=== PATIENT | male | born 1940 | race Hispanic/Latino ===

== ENCOUNTER 2016-12-17 10:07 | Emergency (ER) | payer OTHER ==
[2016-12-17 10:16] VITALS: TEMP 96.8; BMI 18.5
--- NOTE | 2016-12-17 10:44 | ED PDOC ---
Syncope/Near Syncope/Dizziness Time Seen by Provider: 12/17/16 10:24 Chief Complaint (Nursing): Dizziness/Lightheaded Chief Complaint (Provider): Dizziness/lightheaded History Per: Patient History/Exam Limitations: no limitations Onset/Duration Of Symptoms: Hrs (morning prior to arrival ) Current Symptoms Are (Timing): Still Present Additional Complaint(s): Pablo Dyer is a 76 year old male presenting to the ED for an evaluation of dizziness occurring since this morning. The patient describes it as the room spinning around. He also states his dizziness worsens when moving or changing the position of his head, but improves when lying still. He denies associated headache, chest pain, palpitations, and nausea. PMD: Filipe Oliva MD Past Medical History Reviewed: Historical Data, Nursing Documentation, Vital Signs Vital Signs: Last Vital Signs Temp 96.8 F L 12/17/16 10:15 Pulse 90 12/17/16 10:15 Resp 16 12/17/16 10:15 BP 174/102 H 12/17/16 10:15 Pulse Ox 98 12/17/16 10:15 - Medical History PMH: No Chronic Diseases - Family History Family History: States: Unknown Family Hx - Home Medications Home Medications: Ambulatory Orders Medication Instructions Recorded Bacitracin OINT 1 applic TP DAILY #1 tube 07/13/15 Clindamycin [Cleocin] 300 mg PO TID #30 cap 07/13/15 Sulfamethoxazole/Trimethoprim 1 tab PO BID #14 tab 07/13/15 [Bactrim DS 800 mg-160 mg] Meclizine [Meclizine*] 25 mg PO Q8 #15 tab 12/17/16 - Allergies Allergies/Adverse Reactions: Allergies Allergy/AdvReac Type Severity Reaction Status Date / Time No Known Allergies Allergy Verified 07/13/15 11:36 Review of Systems ROS Statement: Except As Marked, All Systems Reviewed And Found Negative Cardiovascular: Negative for: Chest Pain, Palpitations Gastrointestinal: Negative for: Nausea Neurological: Positive for: Dizziness. Negative for: Headache Physical Exam - Reviewed Nursing Documentation Reviewed: Yes Vital Signs Reviewed: Yes - Physical Exam Appears: Positive for: Non-toxic, No Acute Distress Head Exam: Positive for: ATRAUMATIC, NORMAL INSPECTION, NORMOCEPHALIC Skin: Positive for: Normal Color Eye Exam: Positive for: Normal appearance, EOMI, PERRL (PERRLA) Neck: Positive for: Normal, Painless ROM Cardiovascular/Chest: Positive for: Regular Rate, Rhythm. Negative for: Murmur Respiratory: Positive for: Normal Breath Sounds. Negative for: Respiratory Distress Extremity: Positive for: Normal ROM Neurologic/Psych: Positive for: Alert, Oriented (x3). Negative for: Motor/ Sensory Deficits - Laboratory Results Result Diagrams: 12/17/16 10:45 12/17/16 10:45 - ECG O2 Sat by Pulse Oximetry: 98 (RA) Pulse Ox Interpretation: Normal Medical Decision Making Medical Decision Making: Time: 10:24 Impression: Dizziness/lightheaded Plan: * CT Head W/O Contrast * ED EKG * CMP * CBC (With differential) * Reevaluation Scribe Attestation: Documented by Jayde Perry, acting as a scribe for Damion Andujar MD. Provider Scribe Attestation: All medical record entries made by the Scribe were at my direction and personally dictated by me. I have reviewed the chart and agree that the record accurately reflects my personal performance of the history, physical exam, medical decision making, and the department course for this patient. I have also personally directed, reviewed, and agree with the discharge instructions and disposition. Disposition - Clinical Impression Clinical Impression: Vertigo - Patient ED Disposition Is Patient to be Admitted: No Counseled Patient/Family Regarding: Studies Performed, Diagnosis, Need For Followup, Rx Given - Disposition Referrals: [facility] [Outside] Disposition: Routine/Home Disposition Time: 11:11 Condition: FAIR Prescriptions: Meclizine [Meclizine*] 25 mg PO Q8 #15 tab Instructions: Vertigo (ED) Forms: [employer] (Vietnamese)
[2016-12-17 10:50] LABS: BASO # 0.1 K/uL (0.0-0.2); BASO % 0.6 % (0.0-2.0); EOS # 0.4 K/uL (0.0-0.7); EOS % 4.3 % (0.0-4.0); HEMATOCRIT 47.8 % (35.0-51.0); LYMPH % 23.3 % (20.0-40.0); MEAN CELL VOLUME 84.7 fl (80.0-94.0); MEAN CORPUSCULAR HEMOGLOBIN 27.3 pg (27.0-31.0); MEAN CORPUSCULAR HGB CONC 32.2 g/dL (33.0-37.0); MEAN PLATELET VOLUME 7.6 fl (7.2-11.7); MONO # 0.6 K/uL (0.0-0.8); MONO % 7.4 % (0.0-10.0); NEUT # 5.5 K/uL (1.8-7.0); NEUT % 64.4 % (50.0-75.0); RED CELL DISTRIBUTION WIDTH 15.1 % (11.5-14.5); WHITE BLOOD COUNT 8.6 K/uL (4.8-10.8)
[2016-12-17 10:59] LABS: ALB/GLOB RATIO 1.5 (1.0-2.1); ALKALINE PHOSPHATASE 99 U/L (38-126); ALT/SGPT 30 U/L (21-72); AST/SGOT 19 U/L (17-59); BILIRUBIN,TOTAL 0.5 mg/dl (0.2-1.3); BLOOD UREA NITROGEN 11 mg/dl (9-20); CALCIUM 9.8 mg/dL (8.4-10.2); CARBON DIOXIDE 25 mmol/L (22-30); CHLORIDE 104 mmol/L (98-107); GFR AFRICAN-AMERICAN > 60; GLUCOSE,RANDOM 137 mg/dL (75-110); POTASSIUM 4.2 MMOL/L (3.6-5.0); SODIUM 142 mmol/l (132-148); TOTAL PROTEIN 7.7 G/DL (6.3-8.2)
--- NOTE | 2016-12-17 11:22 | CT ---
PROCEDURE: CT HEAD WITHOUT CONTRAST. HISTORY: r/o bleed COMPARISON: None available. TECHNIQUE: Axial computed tomography images were obtained through the head/brain without intravenous contrast. Radiation dose: Total exam DLP = 785.1 mGy-cm. This CT exam was performed using one or more of the following dose reduction techniques: Automated exposure control, adjustment of the mA and/or kV according to patient size, and/or use of iterative reconstruction technique. FINDINGS: HEMORRHAGE: No acute parenchymal, subarachnoid or extra-axial hemorrhage. BRAIN: No evidence of large acute infarct. There appears to be some very minor chronic periventricular white matter ischemic changes. Small -medium-sized chronic appearing infarct and small age-indeterminate infarct anterior limb right internal capsule. Moderate generalized volume loss. VENTRICLES: No obstructive hydrocephalus CALVARIUM: No acute calvarial fractures. PARANASAL SINUSES: Unremarkable as visualized. No significant inflammatory changes. MASTOID AIR CELLS: Unremarkable as visualized. No inflammatory changes. OTHER FINDINGS: None. IMPRESSION: No acute intracranial hemorrhage. 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 Minor chronic periventricular white matter ischemic changes Moderate generalized volume loss.
[2016-12-17 11:42] VITALS: BP 165/77; PULSE 85; RESP 14; O2SAT 100
--- NOTE | 2016-12-21 18:42 | CARD ---
APPROVED REPORT EKG Measurement Heart [id number] <Conclusion> Normal sinus rhythm LVH
== END 2016-12-17 11:40 | disposition home or self-care (01) ==
LOC: H.ER 10:07
DX: R42 Dizziness and giddiness (principal)

== ENCOUNTER 2018-05-05 09:36 | Emergency (ER) | payer MEDICARE, OTHER ==
[2018-05-05 09:48] VITALS: TEMP 97.7; BMI 17.9
[2018-05-05] MEDS ORDERED: Albuterol-Ipratrop 3 mg / 0.5 (3 ml) UD INH STA (10:37)
--- NOTE | 2018-05-05 10:42 | ED PDOC ---
HPI: Influenza Time Seen by Provider: 05/05/18 10:21 Chief Complaint: Cough, Cold, Congestion Chief Complaint (Provider): cough History Per: Patient, Family (caughters) Exam Limitations: no limitations Onset/Duration Of Symptoms: Days (1 week) Symptoms include: sore throat (mild), cough, nasal congestion (mild), chest pain (pleuritic). denies: fever, headache, bodyaches, difficulty breathing Risk factors for flu complications: Yes: adult > 65 years Additional complaint(s):: 77 y/o M current smoker with hx of COPD who presents with persistent cough. Pt states that he has a chronic cough that worsened about 1 week ago. He states that it is worse at night and that it productive of whitish/yellow sputum but that he has trouble expectrorating the cough. He took Dayquil a couple of times with minimal improvement so stopped. He has a mildly sore throat and some nasal congestion that improved a couple of days ago. Denies fever, chills, night sweats, N/V, diarrhea, RODARTE, body aches, dizziness. He denies hx of HTN, CAD/HI, HL, DM. Further denies blood in sputum. Past Medical History Reviewed: Historical Data, Nursing Documentation, Vital Signs Vital Signs: Last Vital Signs Temp 97.7 F 05/05/18 09:42 Pulse 109 H 05/05/18 09:42 Resp 16 05/05/18 09:42 BP 177/101 H 05/05/18 09:42 Pulse Ox 94 L 05/05/18 09:42 - Medical History PMH: COPD - Family History Family History: States: Unknown Family Hx - Social History Current smoker - smoking cessation education provided: Yes (1/2ppd X 60 yrs) Alcohol: Occasional Drugs: Denies - Immunization History Hx Tetanus Toxoid Vaccination: No Hx Influenza Vaccination: No Hx Pneumococcal Vaccination: No - Home Medications Home Medications: Ambulatory Orders Medication Instructions Recorded Bacitracin OINT 1 applic TP DAILY #1 tube 07/13/15 Clindamycin [Cleocin] 300 mg PO TID #30 cap 07/13/15 Sulfamethoxazole/Trimethoprim 1 tab PO BID #14 tab 07/13/15 [Bactrim DS 800 mg-160 mg] Meclizine [Meclizine*] 25 mg PO Q8 #15 tab 12/17/16 Albuterol 0.042% [Albuterol 0.042% 3 ml IH Q6 PRN #1 gabriela 05/05/18 Inhal Gabriela (1.25mg/3ml) UD] Guaifenesin [Mucinex] 600 mg PO BID PRN 7 Days 05/05/18 tab.er.12h Nebulizer Accessories [Adult 1 each MC ONCE PRN #1 each 05/05/18 Aerosol Mask] Nebulizer [Aeroneb Go Nebulizer] 1 each MC ONCE PRN #1 each 05/05/18 - Allergies Allergies/Adverse Reactions: Allergies Allergy/AdvReac Type Severity Reaction Status Date / Time No Known Allergies Allergy Verified 07/13/15 11:36 Physical Exam - Reviewed Nursing Documentation Reviewed: Yes Vital Signs Reviewed: Yes - Physical Exam Appears: Positive for: Well Head Exam: Positive for: ATRAUMATIC Skin: Positive for: Normal Color ENT: Positive for: Normal ENT Inspection Neck: Positive for: Normal Cardiovascular/Chest: Positive for: Regular Rate, Rhythm Respiratory: Positive for: Decreased Breath Sounds (poor air flow, intermittent mild wheezing, no rhonchi or rales. ). Negative for: Accessory Muscle Use Neurologic/Psych: Positive for: Alert, Oriented Medical Decision Making Medical Decision Making: CXR PA and lateral DuoNeb x 1 CXR: my read: no active disease Re-evaluated: Repeat BP: 139/89. Pt states that he was able to expectorate after nebulizer treatment. States that he will be following up with Dr. Castro. - ECG O2 Sat by Pulse Oximetry: 94 Disposition - Clinical Impression Clinical Impression: Cough - Patient ED Disposition Is Patient to be Admitted: No Counseled Patient/Family Regarding: Studies Performed, Diagnosis, Need For Followup - Disposition Referrals: Shay Castro MD [Staff Provider] - Disposition: Routine/Home Disposition Time: 12:16 Condition: STABLE Additional Instructions: Use Albuterol nebulizer and Mucinex for cough as needed. F/u with primary care doctor for routine treatment of COPD. You are encouraged to stop smoking as it will worsen your COPD. Prescriptions: Albuterol 0.042% [Albuterol 0.042% Inhal Gabriela (1.25mg/3ml) UD] 3 ml IH Q6 PRN #1 gabriela PRN Reason: Cough Guaifenesin [Mucinex] 600 mg PO BID PRN 7 Days tab.er.12h PRN Reason: Cough Nebulizer [Aeroneb Go Nebulizer] 1 each MC ONCE PRN #1 each PRN Reason: Pain, Moderate (4-7) Nebulizer Accessories [Adult Aerosol Mask] 1 each MC ONCE PRN #1 each PRN Reason: Cough Instructions: Cough, Adult (DC) Forms: [facility] [employer] (Dominican) Print Language: KAZAKH
[2018-05-05] MEDS ORDERED: Albuterol-Ipratrop 3 mg / 0.5 (3 ml) UD ONE (10:44)
--- NOTE | 2018-05-05 11:36 | RAD ---
Date of service: 05/05/2018 HISTORY: shortness of breath, cough COMPARISON: 06/28/2010 TECHNIQUE: Chest PA and lateral FINDINGS: LUNGS: No active pulmonary disease. PLEURA: No significant pleural effusion identified. No pneumothorax apparent. CARDIOVASCULAR: There is atherosclerotic calcification of the thoracic aorta. Normal cardiac size. No pulmonary vascular congestion. There is a smooth ovoid radiopaque structure at the level of the midline diaphragm anteriorly unchanged since 04/03, of uncertain significance. OSSEOUS STRUCTURES: No significant abnormalities. VISUALIZED UPPER ABDOMEN: Normal. OTHER FINDINGS: None. IMPRESSION: No active disease.
[2018-05-05 12:15] VITALS: BP 124/77; PULSE 94; RESP 17
[2018-05-05 13:02] VITALS: O2SAT 94
== END 2018-05-05 12:18 | disposition home or self-care (01) ==
LOC: H.ER 09:36
DX: R05 Cough (principal); J44.9 Chronic obstructive pulmonary disease, unspecified